=== PATIENT | female | born 1985 | race Caucasian/White ===

== ENCOUNTER 2017-01-12 05:44 | Day surgery (SDC) | payer OTHER ==
[~2017-01-12] VITALS: Ht 149.9 cm; Wt 58.1 kg
[~2017-01-12 05:44] MED LIST: ALPRAZOLAM0.5 MG PO; AMOXICILLIN500 MG PO; ARIPIPRAZOLE5 MG PO; CELEXA20 MG PO; CITRATE OF MAG296 ML PO; DIVALPROEX SOD250 MG PO; DULCOLAX5 MG PO; FIORICET,ESG1 TABLET PO; FLEXERIL10 MG PO; IBUPROFEN800 MG PO; METHADONE10 MG PO; METHADONE5 MG PO; MORPHINE SULFAT30 M1 PO; MOTRIN800 MG PO; NAPROSYN500 MG PO; PEN-VEE K,VEET500 MG PO; PRENATAL TABLE1 EAC3 PO; ULTRAM50 MG PO; WELLBUTRIN75 MG PO; XANAX1 MG PO; [UNRECOGNIZED DRUG - REMARK]
[2017-01-12 06:39] VITALS: BP 123/66
[2017-01-12] MEDS ORDERED: ENDOCET 5-3251 EACH PO (08:14)
[2017-01-12] MEDS ORDERED: IBUPROFEN800 MG PO (08:14)
[2017-01-12 09:27] VITALS: BP 98/59
[2017-01-12 10:45] VITALS: BP 102/58
[2017-01-12 11:35] VITALS: BP 108/62
== END 2017-01-12 12:00 | disposition home or self-care (01) ==
LOC: SDC 05:44
PROC: 0U574ZZ Destruction of Bilateral Fallopian Tubes, Percutaneous Endoscopic Approach (ICD-10-PCS; principal; 2017-01-12)
DX: Z30.2 Encounter for sterilization (principal); F17.200 Nicotine dependence, unspecified, uncomplicated
CPT/HCPCS: J0131; J1100; J1885; J2250; J2405; J2710; J2765; J3010; S0020

== ENCOUNTER 2017-03-22 16:21 | Emergency (ER) | payer OTHER ==
[~2017-03-22] VITALS: Ht 152.4 cm; Wt 60.1 kg
[~2017-03-22 16:21] MED LIST changes: +ENDOCET 5-3251 EACH PO
[2017-03-22] MEDS ORDERED: TRAMADOL HCL50 MG PO (19:20)
[2017-03-22 19:34] VITALS: BP 129/82
== END 2017-03-22 19:47 | disposition home or self-care (01) ==
LOC: EME 16:21
PROC: 2W3CX1Z Immobilization of Right Lower Arm using Splint (ICD-10-PCS; principal; 2017-03-22)
DX: S63.601A Unspecified sprain of right thumb, initial encounter (principal); S63.501A Unspecified sprain of right wrist, initial encounter; W22.09XA Striking against other stationary object, initial encounter; F17.210 Nicotine dependence, cigarettes, uncomplicated
CPT/HCPCS: 73130; 99281; 99284

== ENCOUNTER 2017-05-13 17:21 | Emergency (ER) | payer OTHER ==
[~2017-05-13] VITALS: Ht 149.9 cm; Wt 60.5 kg
[~2017-05-13 17:21] MED LIST changes: +TRAMADOL HCL50 MG PO
[2017-05-13 17:26] VITALS: BP 114/70
== END 2017-05-13 18:19 | disposition left against medical advice (07) ==
LOC: EME 17:21
DX: S09.90XA Unspecified injury of head, initial encounter (principal); Z53.21 Procedure and treatment not carried out due to patient leaving prior to being seen by health care provider

== ENCOUNTER 2018-04-25 21:51 | Emergency (ER) | payer OTHER ==
[~2018-04-25] VITALS: Ht 149.9 cm; Wt 55.6 kg
[2018-04-26] MEDS ORDERED: CLEOCIN300 MG PO ×2 (01:40→01:41)
[2018-04-26 01:53] VITALS: BP 122/87
== END 2018-04-26 01:53 | disposition home or self-care (01) ==
LOC: EME 21:51
DX: K04.7 Periapical abscess without sinus (principal); F32.9 Major depressive disorder, single episode, unspecified; F41.9 Anxiety disorder, unspecified; F17.200 Nicotine dependence, unspecified, uncomplicated; Z88.0 Allergy status to penicillin; Z88.6 Allergy status to analgesic agent; Z91.040 Latex allergy status
CPT/HCPCS: 99281; 99283

== ENCOUNTER 2018-05-19 21:23 | Emergency (ER) | payer OTHER ==
[~2018-05-19] VITALS: Ht 149.9 cm; Wt 50.1 kg
[~2018-05-19 21:23] MED LIST changes: +CLEOCIN300 MG PO
[2018-05-19 22:42] LABS: BASOPHIL (%) 0.6 % (0-1); BASOPHIL COUNT 0.1 K/uL (0-0.1); EOSINOPHIL (%) 1.2 % (0-5); EOSINOPHIL COUNT 0.1 K/uL (0-0.3); HEMATOCRIT 46.4 % (36.0-46.0); HEMOGLOBIN 15.7 G/DL (11.9-15.5); IMMATURE GRANULOCYTE (%) 0.3 % (0.0-0.7); LYMPHOCYTE (%) 29.3 % (15-42); LYMPHOCYTE COUNT 2.8 K/uL (1.0-2.8); MCHC 33.8 G/DL (30.0-36.0); MCV 88.5 FL (83-99); MONOCYTE (%) 5.6 % (3-12); MONOCYTE COUNT 0.5 K/uL (0-0.8); PLATELET COUNT 297 K/uL (156-360); RBC DIS.WIDTH-CV 14.1 % (11.8-14.6); RBC DIS.WIDTH-SD 45.8 % (39-53); RED BLOOD COUNT 5.24 M/uL (3.80-5.20); WHITE BLOOD COUNT 9.6 K/uL (4.1-10.2)
[2018-05-19 23:00] LABS: AMYLASE 62 IU/L (1-118); CHLORIDE 107 mEq/L (99-109); POTASSIUM 3.6 mEq/L (3.7-5.4); SODIUM 146 mEq/L (136-147)
[2018-05-19 23:01] LABS: GLUCOSE 81 mg/dL (70-99)
[2018-05-19 23:05] LABS: CREATININE 1.1 mg/dL (0.6-1.3); GFR ESTIMATE (CALCULATED) > 59 mL/min/; SERUM ETHYL ALCOHOL 173 mg/dL
[2018-05-19 23:06] LABS: UREA NITROGEN (BUN) 14 mg/dL (9-23)
[2018-05-19 23:08] LABS: LIPASE 55 U/L (1.0-51.0)
[2018-05-19 23:14] LABS: QUANTITATIVE HCG < 4.0 MIU/ML
[2018-05-19 23:54] LABS: APPEARANCE CLEAR ((CLEAR)); BILIRUBIN NEGATIVE; BLOOD NEGATIVE; COLOR STRAW ((YELLOW)); GLUCOSE (STRIP) NEGATIVE; KETONES NEGATIVE; LEUKOCYTES NEGATIVE; NITRITE NEGATIVE; PROTEIN (STRIP) NEGATIVE; SPECIFIC GRAVITY 1.009 (1.000-1.030); UCUL ADDED? NO; UROBILINOGEN 0.2 MG/DL (0.2-1.0)
[2018-05-20 00:01] LABS: AMPHETAMINE NEGATIVE (500 ng/mL); BARBITURATES NEGATIVE (200 ng/mL); BENZODIAZEPINES PRESUMPTIVE POSITIVE (150 ng/mL); BUPRENORPHINE NEGATIVE (10 ng/mL); COCAINE PRESUMPTIVE POSITIVE (150 ng/mL); METHADONE NEGATIVE (200 ng/mL); METHAMPHETAMINE NEGATIVE (500 ng/mL); OPIATES (MORPHINE) NEGATIVE (100 ng/mL); OXYCODONE NEGATIVE (100 ng/mL); PHENCYCLIDINE NEGATIVE (25 ng/mL); PROPOXYPHENE NEGATIVE (300 ng/mL); THC CANNABINOIDS PRESUMPTIVE POSITIVE (50 ng/mL); TRICYCLIC ANTIDEPRESSANTS NEGATIVE (300 ng/mL)
[2018-05-20] MEDS ORDERED: NORCO 5/3251 TABLET PO (00:23)
[2018-05-20 01:24] LABS: BENZODIAZEPINES, URINE SCREEN POSITIVE (200 ng/mL)
[2018-05-20 01:45] VITALS: BP 121/100
== END 2018-05-20 01:45 | disposition home or self-care (01) ==
LOC: EME → EDBD 21:23 → EME 05-20 01:45
PROVIDERS: Emergency Medicine
DX: S02.609A Fracture of mandible, unspecified, initial encounter for closed fracture (principal); F19.10 Other psychoactive substance abuse, uncomplicated; F10.129 Alcohol abuse with intoxication, unspecified; Y90.6 Blood alcohol level of 120-199 mg/100 ml; V49.9XXA Car occupant (driver) (passenger) injured in unspecified traffic accident, initial encounter; Y92.410 Unspecified street and highway as the place of occurrence of the external cause; F12.90 Cannabis use, unspecified, uncomplicated; F17.200 Nicotine dependence, unspecified, uncomplicated; Z91.040 Latex allergy status; Z88.0 Allergy status to penicillin; Z88.6 Allergy status to analgesic agent
CPT/HCPCS: 70450; 70486; 71045; 72125; 80048; 81003; 82150; 83690; 84702; 84999; 85025; 99281; 99285; G0480